=== PATIENT | male | born 1990 | race Caucasian/White ===

== ENCOUNTER 2018-10-19 12:27 | Emergency (ER) | payer SELFPAY ==
--- NOTE | 2018-10-19 13:22 | RAD ---
EXAM: 4 views of the right elbow HISTORY: Elbow pain COMPARISON: None FINDINGS: No elbow effusion is seen. There is no evidence of acute fracture or dislocation. No signi ficant degenerative changes are seen. No soft tissue swelling is present. IMPRESSION: No evidence of acute osseous abnormality.
== END 2018-10-19 14:32 | disposition home or self-care (01) ==
LOC: ERS 12:27
DX: S50.01XA Contusion of right elbow, initial encounter (principal); G40.909 Epilepsy, unspecified, not intractable, without status epilepticus; F17.210 Nicotine dependence, cigarettes, uncomplicated; V19.9XXA Pedal cyclist (driver) (passenger) injured in unspecified traffic accident, initial encounter